=== PATIENT | male | born 1990 | race Caucasian/White ===

== ENCOUNTER 2016-07-23 17:54 | Emergency (ER) | payer MEDICAID ==
[2016-07-23] MEDS ORDERED: ACETAMINOPHEN 325 MG TABLET PO STA (19:17)
[2016-07-23] MEDS ORDERED: DEXAMETHASONE 10 MG/ML VIAL PO STA (19:17)
[2016-07-23] MEDS ORDERED: AMOXICILLIN 250 MG CAPSULE PO STA (19:18)
[2016-07-23] MEDS ORDERED: HYDROcod/ACETAM 5/325 MG TABLET PO STA (19:18)
[2016-07-23] MEDS ORDERED: HYDROcod/ACETAM 5/325 MG TABLET ONE (19:22)
[2016-07-23] MEDS ORDERED: CHERRY SYRUP 10 ML UDC PO ONE (19:22)
[2016-07-23] MEDS ORDERED: DEXAMETHASONE 10 MG/ML VIAL ONE (19:22)
[2016-07-23] MEDS ORDERED: ACETAMINOPHEN 325 MG TABLET PO ONE (19:22)
[2016-07-23] MEDS ORDERED: AMOXICILLIN 250 MG CAPSULE PO ONE (19:22)
== END 2016-07-23 20:12 | disposition home or self-care (01) ==
DX: J01.10 Acute frontal sinusitis, unspecified (principal); F17.200 Nicotine dependence, unspecified, uncomplicated
CPT/HCPCS: 70450; 99283; A9270

== ENCOUNTER 2016-10-13 09:54 | Outpatient (CLI) | payer MEDICAID | END 2016-10-13 09:55 | disposition critical access hospital (66) | LOC: EMS 09:54 | PROVIDERS: ATTEND Surgery | DX: R52 Pain, unspecified (principal) | CPT/HCPCS: A0425; A0429 ==

== ENCOUNTER 2016-10-13 10:14 | Emergency (ER) | payer MEDICAID ==
[2016-10-13] MEDS ORDERED: LIDOCAINE 1%-EPI 1:100000 20 ML MDV SUBQ STA (10:23)
[2016-10-13] MEDS ORDERED: HYDROcod/ACETAM 5/325 MG TABLET PO STA (10:23)
[2016-10-13] MEDS ORDERED: DOCUSATE SODIUM 100 MG CAPSULE PO STA (10:23)
[2016-10-13] MEDS ORDERED: LIDOCAINE 1%-EPI 1:100000 20 ML MDV ONE (10:24)
[2016-10-13] MEDS ORDERED: DOCUSATE SODIUM 100 MG CAPSULE PO ONE (10:26)
[2016-10-13] MEDS ORDERED: HYDROcod/ACETAM 5/325 MG TABLET ONE (10:26)
== END 2016-10-13 11:07 | disposition home or self-care (01) ==
DX: K64.5 Perianal venous thrombosis (principal); Z59.0 Homelessness; Z87.11 Personal history of peptic ulcer disease; F17.200 Nicotine dependence, unspecified, uncomplicated

== ENCOUNTER 2016-10-13 11:48 | Emergency (ER) | payer MEDICAID ==
[2016-10-13] MEDS ORDERED: LIDOCAINE OINTMENT 5% 35.44 GM TUBE TOP STA (12:08)
[2016-10-13] MEDS ORDERED: HYDROcod/ACETAM 5/325 MG TABLET PO STA (12:08)
[2016-10-13] MEDS ORDERED: HYDROcod/ACETAM 5/325 MG TABLET ONE (12:11)
[2016-10-13] MEDS ORDERED: LIDOCAINE JELLY 2% 5 ML TUBE TOP ONE (12:11)
[2016-10-13] MEDS ORDERED: LIDOCAINE OINTMENT 5% 35.44 GM TUBE ONE (12:14)
== END 2016-10-13 12:28 | disposition home or self-care (01) ==
DX: R55 Syncope and collapse (principal); K64.5 Perianal venous thrombosis; Z87.11 Personal history of peptic ulcer disease; J45.909 Unspecified asthma, uncomplicated; F17.200 Nicotine dependence, unspecified, uncomplicated; Z59.0 Homelessness
CPT/HCPCS: 46083; 99283; A9270

== ENCOUNTER 2017-02-04 14:13 | Outpatient (CLI) | payer MEDICAID | END 2017-02-04 14:14 | disposition critical access hospital (66) | LOC: EMS 14:13 | PROVIDERS: ATTEND Surgery | DX: F41.9 Anxiety disorder, unspecified (principal) | CPT/HCPCS: A0425; A0429 ==

== ENCOUNTER 2017-02-04 14:31 | Emergency (ER) | payer MEDICAID ==
[2017-02-04 14:39] VITALS: BP 131/81
== END 2017-02-04 15:38 | disposition home or self-care (01) ==
LOC: EDUNIT# → ED 14:31
DX: I10 Essential (primary) hypertension (principal); R20.0 Anesthesia of skin; Z76.0 Encounter for issue of repeat prescription; Z53.21 Procedure and treatment not carried out due to patient leaving prior to being seen by health care provider

== ENCOUNTER 2017-04-18 09:02 | Emergency (ER) | payer MEDICAID ==
[2017-04-18 09:18] VITALS: BP 117/82
[2017-04-18] MEDS ORDERED: PROPARACAINE 0.5% OPHTH DROPS 15 ML EACHEYE STA (09:18)
[2017-04-18] MEDS ORDERED: PROPARACAINE 0.5% OPHTH DROPS 15 ML ONE (09:23)
--- NOTE | 2017-04-18 09:55 | ED Physician Documentation ---
PD HPI OPHTHO - Stated complaint Stated Complaint: EYE PX - Chief complaint Chief Complaint: Heent - History obtained from History obtained from: Patient - History of Present Illness Timing - onset: How many hours ago (1) Timing - duration: Hours (1) Timing - details: Abrupt onset Pain level max: 5 Pain level now: 4 Location: Right Quality / character: Aching Associated symptoms: FB sensation, Other Contributing factors: Blunt trauma (hit in eye with branch), Irrigated [employer]. No : Wears glasses, Wears contacts, Work related Similar symptoms before: Diagnosis (corneal abrasion) Recently seen: Not recently seen Review of Systems Constitutional: denies: Fever, Chills Eyes: reports: Photophobia, Irritation. denies: Loss of vision, Discharge Ears: denies: Ear pain Nose: reports: Rhinorrhea / runny nose, Congestion Throat: denies: Sore throat PD PAST MEDICAL HISTORY - Past Medical History Past Medical History: Yes Cardiovascular: None Respiratory: Asthma Neuro: Head injury Endocrine/Autoimmune: None GI: Ulcers Psych: Depression, Anxiety, Post traumatic stress disorder - Past Surgical History Past Surgical History: Yes HEENT: Other - Present Medications Home Medications: Ambulatory Orders Medication Instructions Recorded Confirmed Benzonatate [Tessalon Perle] 100 - 200 mg PO TID PRN #30 capsule 04/18/17 Cetirizine HCl/Pseudoephedrine 1 each PO BID PRN #30 tab.er.12h 04/18/17 [Zyrtec-D Tablet] Polymyxin B Sulf/Trimethoprim 1 drop RIGHTEYE Q3H 7 Days drops 04/18/17 [Polytrim Eye Drops] - Allergies Allergies/Adverse Reactions: Allergies Allergy/AdvReac Type Severity Reaction Status Date / Time ketorolac Allergy Intermediate Hives Verified 04/18/17 09:12 tramadol Allergy Intermediate Hives Verified 04/18/17 09:12 NSAIDS (Non-Steroidal AdvReac Intermediate vomits Verified 04/18/17 09:12 Anti-Inflamma blood - Social History Does the pt smoke?: Yes Smoking Status: Current every day smoker Does the pt drink ETOH?: Yes Does the pt have substance abuse?: Yes Substance Use and Type: Marijuana - Immunizations Immunizations are current?: Yes Immunizations: TDAP >10years/unknown - POLST Patient has POLST: No PD ED PE NORMAL - Vitals Vital signs reviewed: Yes - General General: Alert and oriented X 3, No acute distress, Well developed/nourished - HEENT HEENT: PERRL, EOMI, Ears normal, Moist mucous membranes - Neck Neck: Supple, no meningeal sign - Cardiac Cardiac: RRR - Respiratory Respiratory: No respiratory distress, Clear bilaterally - Abdomen Abdomen: Soft, Non tender, Non distended - Derm Derm: Warm and dry - Neuro Neuro: Alert and oriented X 3 - Psych Psych: Normal mood, Normal affect PD ED PE EXPANDED - HEENT HEENT Visual: 1 - abrasion (+fluoroscein uptake, small abrasion.) - Eyes Eyes: Visual acuity - see nn, PERRL, Normal eyelids, No eyelid FB (everted), Corneal abrasion. No: Conj/sclera FB, Corneal FB, Hyphema Results - Vitals Vitals: Vital Signs - 24 hr 04/18/17 04/18/17 09:06 09:12 Temperature 36.2 C L 36.5 C Heart Rate 75 69 Respiratory 96 H 20 Rate Blood Pressure 117/71 117/82 H O2 Saturation 97 Oxygen O2 Source Room air PD MEDICAL DECISION MAKING - ED course Complexity details: considered differential, d/w patient ED course: Patient is a 27-year-old male who presents to the emergency department with a right eye corneal abrasion. [facility]. Also appears to have a viral URI. No evidence of pneumonia, hypoxia, respiratory distress. No fevers. He is well-appearing, nontoxic. He does not wear contacts or glasses. Will follow up with his PCP for further evaluation and care. Patient counseled regarding signs and symptoms for which I believe and urgent re-evaluation would be necessary. Patient with good understanding of and agreement to plan and is comfortable going home at this time This document was made in part using voice recognition software. While efforts are made to proofread this document, sound alike and grammatical errors may occur. Departure - Departure Disposition: 01 Home, Self Care Clinical Impression: Viral URI Corneal abrasion Qualifiers: Encounter type: initial encounter Laterality: right Qualified Code(s): S05.01XA - Injury of conjunctiva and corneal abrasion without foreign body, right eye, initial encounter Condition: Good Instructions: ED Eye Injury Corneal Abrasion, ED URI Viral Follow-Up: your,doctor in 3 days to recheck your eye [Other] Prescriptions: Benzonatate [Tessalon Perle] 100 - 200 mg PO TID PRN #30 capsule PRN Reason: Cough Cetirizine HCl/Pseudoephedrine [Zyrtec-D Tablet] 1 each PO BID PRN #30 tab.er.12h PRN Reason: Nasal Congestion Polymyxin B Sulf/Trimethoprim [Polytrim Eye Drops] 1 drop RIGHTEYE Q3H 7 Days drops Comments: Return if you worsen. This should continue to improve over the next few days, but follow up with your doctor closely to ensure it is healing. The cough will likely last about 2 weeks.
== END 2017-04-18 10:19 | disposition home or self-care (01) ==
LOC: ED 09:02
DX: S05.01XA Injury of conjunctiva and corneal abrasion without foreign body, right eye, initial encounter (principal); W22.8XXA Striking against or struck by other objects, initial encounter; Y93.H2 Activity, gardening and landscaping; F17.200 Nicotine dependence, unspecified, uncomplicated
CPT/HCPCS: 99283; 99284; J3490

== ENCOUNTER 2017-11-03 14:06 | Emergency (ER) | payer MEDICAID ==
[2017-11-03] MEDS ORDERED: CLINDAMYCIN 150 MG CAPSULE PO STA (15:09)
[2017-11-03] MEDS ORDERED: HYDROcod/ACETAM 5/325 MG TABLET PO STA (15:09)
--- NOTE | 2017-11-03 15:10 | ED Physician Documentation ---
PD HPI HEENT - Stated complaint Stated Complaint: TOOTH PX - Chief complaint Chief Complaint: Heent - History obtained from History obtained from: Patient - History of Present Illness Timing - onset: How many days ago (couple) Timing - duration: Days Timing - details: Abrupt onset, Still present (worsening pain with feeling of some drainage.) Location: Tooth (left lower molar) Associated symptoms: No: Fever, Congestion, Swollen nodes, Facial swelling Recently seen: Not recently seen Review of Systems Constitutional: denies: Fever, Chills, Myalgias Throat: reports: Dental pain / toothache. denies: Oral lesions / sores, Sore throat, Swollen tonsils Cardiac: denies: Chest pain / pressure GI: denies: Nausea, Vomiting Skin: denies: Rash PD PAST MEDICAL HISTORY - Past Medical History Past Medical History: Yes Cardiovascular: None Respiratory: Asthma Endocrine/Autoimmune: None GI: Ulcers Psych: Depression, Anxiety, Post traumatic stress disorder - Past Surgical History Past Surgical History: Yes HEENT: Other - Present Medications Home Medications: Ambulatory Orders Medication Instructions Recorded Confirmed Clindamycin [Cleocin] 150 mg PO TID #21 capsule 11/03/17 HYDROcod/ACETAM 5/325 [[place] 5/325] 1 tab PO Q6H PRN #15 tablet 11/03/17 - Allergies Allergies/Adverse Reactions: Allergies Allergy/AdvReac Type Severity Reaction Status Date / Time ketorolac Allergy Intermediate Hives Verified 11/03/17 14:19 tramadol Allergy Intermediate Hives Verified 11/03/17 14:19 NSAIDS (Non-Steroidal AdvReac Intermediate vomits Verified 11/03/17 14:19 Anti-Inflamma blood - Social History Does the pt smoke?: Yes Smoking Status: Current every day smoker Does the pt drink ETOH?: Yes Does the pt have substance abuse?: Yes Substance Use and Type: Marijuana - Immunizations Immunizations are current?: Yes Immunizations: TDAP >10years/unknown - POLST Patient has POLST: No PD ED PE NORMAL - Vitals Vital signs reviewed: Yes - General General: Alert and oriented X 3, No acute distress, Well developed/nourished, Other (generally malodorous, feet, skin, clothing) - HEENT HEENT: Pharynx benign. No: Dentition benign (poor dentition but left lower 2nd molar with portion of tooth missing leaving hollow area amenable to temp filling. Gum with some redness and mild swelling. No focal swelling/fluctuance nor drainage. ) - Neck Neck: Supple, no meningeal sign, No adenopathy - Cardiac Cardiac: RRR, No murmur - Respiratory Respiratory: Clear bilaterally Results - Vitals Vitals: Oxygen O2 Source Room air PD MEDICAL DECISION MAKING - ED course Complexity details: reviewed old records (not as many recent visits), considered differential (hollow area of 2nd molar lower right, with temporary filling placed in it. There is some swelling of the gum but not notable abscess. ), d/w patient Departure - Departure Disposition: Home, Self Care Clinical Impression: Infected dental caries Condition: Stable Record reviewed to determine appropriate education?: Yes Instructions: ED Cavity Dental Follow-Up: [facility] [Provider Group] Saul Shook DDS [Provider Admit Priv/Credential] - Prescriptions: Clindamycin [Cleocin] 150 mg PO TID #21 capsule HYDROcod/ACETAM 5/325 [[place] 5/325] 1 tab PO Q6H PRN #15 tablet PRN Reason: Pain Comments: Try to keep the temporary filling in place as long as it will stay. Call [facility] or Dr. Shook oral surgeon Saturday or Saturday for an appointment to have the tooth examined likely extracted. Use Tylenol or hydrocodone if needed for pains. Clindamycin 3 times a day for the next week for infection. Discharge Date/Time: 11/03/17 15:21
[2017-11-03 15:23] VITALS: BP 108/57
== END 2017-11-03 15:21 | disposition home or self-care (01) ==
LOC: ED 14:06
DX: K04.7 Periapical abscess without sinus (principal); K02.9 Dental caries, unspecified; J45.909 Unspecified asthma, uncomplicated; Z87.11 Personal history of peptic ulcer disease; F17.200 Nicotine dependence, unspecified, uncomplicated
CPT/HCPCS: 99283; A9270

== ENCOUNTER 2017-12-23 10:00 | Emergency (ER) | payer MEDICAID ==
[2017-12-23 10:10] VITALS: BP 111/88
--- NOTE | 2017-12-23 20:38 | ED Physician Documentation ---
History of Present Illness - Stated complaint Stated Complaint: KNEE PX - Chief complaint Chief Complaint: Ext Problem PD PAST MEDICAL HISTORY - Past Medical History Past Medical History: Yes Cardiovascular: None Respiratory: Asthma Endocrine/Autoimmune: None GI: Ulcers Psych: Depression, Anxiety, Post traumatic stress disorder - Past Surgical History Past Surgical History: Yes HEENT: Other - Allergies Allergies/Adverse Reactions: Allergies Allergy/AdvReac Type Severity Reaction Status Date / Time ketorolac Allergy Intermediate Hives Verified 11/03/17 14:19 tramadol Allergy Intermediate Hives Verified 12/23/17 10:10 NSAIDS (Non-Steroidal AdvReac Intermediate vomits Verified 11/03/17 14:19 Anti-Inflamma blood - Social History Does the pt smoke?: Yes Smoking Status: Current every day smoker Does the pt drink ETOH?: Yes Does the pt have substance abuse?: Yes - Immunizations Immunizations are current?: Yes Immunizations: TDAP current <10years - POLST Patient has POLST: No Results - Vitals Vitals: Vital Signs - 24 hr 12/23/17 10:08 Temperature 36.6 C Heart Rate 98 Respiratory 18 Rate Blood Pressure 111/88 H O2 Saturation 97 Oxygen O2 Source Room air PD MEDICAL DECISION MAKING - ED course ED course: pt not in room nurse states he walked out to smoke and did not return - Sepsis Event Vital Signs: Vital Signs - 24 hr 12/23/17 10:08 Temperature 36.6 C Heart Rate 98 Respiratory 18 Rate Blood Pressure 111/88 H O2 Saturation 97 Oxygen O2 Source Room air Departure - Departure Disposition: ED Left Without Being Seen Discharge Date/Time: 12/23/17 11:06
== END 2017-12-23 11:06 | disposition left against medical advice (07) ==
LOC: ED 10:00
DX: Z53.21 Procedure and treatment not carried out due to patient leaving prior to being seen by health care provider (principal)
CPT/HCPCS: 99281

== ENCOUNTER 2017-12-27 05:40 | Outpatient (CLI) | payer MEDICAID | END 2017-12-27 05:41 | disposition critical access hospital (66) | LOC: EMS 05:40 | PROVIDERS: ATTEND Surgery | DX: M25.561 Pain in right knee (principal) | CPT/HCPCS: A0425; A0429; A0999 ==

== ENCOUNTER 2017-12-27 06:01 | Emergency (ER) | payer MEDICAID ==
[2017-12-27] MEDS ORDERED: ACETAMINOPHEN 325 MG TABLET PO STA (06:11)
[2017-12-27 06:12] VITALS: BP 120/80
--- NOTE | 2017-12-27 06:15 | ED Physician Documentation ---
PD HPI LOWER EXT INJURY - Stated complaint Stated Complaint: RIGHT KNEE PAIN X 1 WEEK - Chief complaint Chief Complaint: Ext Problem - History obtained from History obtained from: Patient - History of Present Illness PD HPI LOW EXT INJURY LOCATION: Right, Knee Type of injury: Other (Patient states that he was walking on flat ground and he felt a pop in his knee and had pain. States the pain has been increasing over the past week. Has not taken anything for this. States he was arrested the day after this occurred and has been in care home the last several days. Did not seek any medical attention for this while he was in care home.) Where injury occurred: Street Timing - onset: How many weeks ago (1) Timing - duration: Weeks (1) Timing - details: Gradual onset Pain level max: 7 Pain level now: 7 Improved by: Rest Worsened by: Moving, Palpating Associated symptoms: No: Weakness, Numbness, Tingling, Swelling Contributing factors: No: Anticoagulated, Prosthetic joint Recently seen: Other (checked in a few days ago, but left before being seen for same issue.) Review of Systems Constitutional: denies: Fever, Chills Musculoskeletal: denies: Neck pain, Back pain Neurologic: denies: Focal weakness, Numbness PD PAST MEDICAL HISTORY - Past Medical History Past Medical History: Yes Cardiovascular: None Respiratory: Asthma Endocrine/Autoimmune: None GI: Ulcers Psych: Depression, Anxiety, Post traumatic stress disorder - Past Surgical History Past Surgical History: Yes HEENT: Other - Present Medications Home Medications: Ambulatory Orders Medication Instructions Recorded Confirmed Hydrocodone/Acetaminophen 1 - 2 each PO Q6H PRN #7 tablet 12/27/17 [Hydrocodon-Acetaminophen 5-325] - Allergies Allergies/Adverse Reactions: Allergies Allergy/AdvReac Type Severity Reaction Status Date / Time ketorolac Allergy Intermediate Hives Verified 12/27/17 06:13 tramadol Allergy Intermediate Hives Verified 12/27/17 06:13 NSAIDS (Non-Steroidal AdvReac Intermediate vomits Verified 12/27/17 06:13 Anti-Inflamma blood - Social History Does the pt smoke?: Yes Smoking Status: Current every day smoker Does the pt drink ETOH?: Yes Does the pt have substance abuse?: Yes - Immunizations Immunizations are current?: Yes Immunizations: TDAP current <10years - POLST Patient has POLST: No PD ED PE NORMAL - Vitals Vital signs reviewed: Yes - General General: Alert and oriented X 3, No acute distress - HEENT HEENT: Moist mucous membranes - Neck Neck: Supple, no meningeal sign - Derm Derm: Warm and dry - Extremities Extremities: Other (R knee - mild diffuse TTP. no swelling. no skin changes. ACL , PCL, MCL, LCL intact. ) - Neuro Neuro: Alert and oriented X 3 Results - Vitals Vitals: Vital Signs - 24 hr 12/27/17 06:05 Temperature 36.4 C L Heart Rate 83 Respiratory 15 Rate Blood Pressure 120/80 O2 Saturation 98 Oxygen O2 Source Room air - Rads (name of study) R knee xray Radiology: Prelim report reviewed, EMP read contemporaneously PD MEDICAL DECISION MAKING - ED course Complexity details: reviewed results, re-evaluated patient, considered differential, d/w patient ED course: Patient is a 27-year-old male who presents to the emergency department with right knee pain for the past week. ACL, MCL, LCL, PCL are intact. Unable to fully test his meniscus secondary to pain. No acute findings on x-ray. Will place him in a hinged knee brace, give crutches and have him follow-up with his doctor or orthopedics for repeat evaluation. Patient counseled regarding signs and symptoms for which I believe and urgent re-evaluation would be necessary. Patient with good understanding of and agreement to plan and is comfortable going home at this time This document was made in part using voice recognition software. While efforts are made to proofread this document, sound alike and grammatical errors may occur. - Sepsis Event Vital Signs: Vital Signs - 24 hr 12/27/17 06:05 Temperature 36.4 C L Heart Rate 83 Respiratory 15 Rate Blood Pressure 120/80 O2 Saturation 98 Oxygen O2 Source Room air Departure - Departure Disposition: Home, Self Care Clinical Impression: Right knee sprain Qualifiers: Encounter type: initial encounter Involved ligament of knee: unspecified ligament Qualified Code(s): S83.91XA - Sprain of unspecified site of right knee , initial encounter Condition: Good Instructions: ED Meniscal Injury Knee Poss, ED Sprain Knee Follow-Up: [facility] [Provider Group] [facility] [Provider Group] - Within 1 week Prescriptions: Hydrocodone/Acetaminophen [Hydrocodon-Acetaminophen 5-325] 1 - 2 each PO Q6H PRN #7 tablet PRN Reason: pain Comments: Wear the brace for the next week. Use the crutches to help you walk. This should improve over the next week. Follow up with your doctor or orthopedics for further care. Do not drink alcohol or drive while on narcotic pain medicine. Note that many narcotic pain relievers also contain tylenol/acetaminophen. Please ensure that your total dose of acetaminophen from all sources does not exceed 3 grams (3000mg) per day. You may constipated on this medication, take a stool softener such as "Colace" twice a day while you are on it. Also recommend a zuhe-hxd-mjmemys laxative such as senna or MiraLAX any day that you do not have a bowel movement. If you received narcotic pain medication in the emergency department, do not drive or operate machinery for the next 24 hours.
--- NOTE | 2017-12-27 06:41 | XRAY Report ---
Procedure Date: 12/27/2017 Accession Number: [id number] / [id number] Procedure: XR - Knee 4 View RT CPT Code: FULL RESULT: EXAM: RIGHT KNEE RADIOGRAPHY EXAM DATE: 12/27/2017 06:29 AM. CLINICAL HISTORY: R knee pain, no known injury. COMPARISON: 01/14/2012. TECHNIQUE: 4 views. FINDINGS: Bones: No fracture seen. Joints: No dislocation. Joint spaces appear intact. No joint effusion identified. Soft Tissues: Grossly unremarkable. IMPRESSION: 1. No acute abnormality seen in the knee. RADIA
== END 2017-12-27 06:45 | disposition home or self-care (01) ==
LOC: EDUNIT# → ED 06:01
DX: S83.91XA Sprain of unspecified site of right knee, initial encounter (principal); X50.1XXA Overexertion from prolonged static or awkward postures, initial encounter; Y93.01 Activity, walking, marching and hiking; Y92.413 State road as the place of occurrence of the external cause; J45.909 Unspecified asthma, uncomplicated; F17.200 Nicotine dependence, unspecified, uncomplicated
CPT/HCPCS: 73564; 99283; A9270

== ENCOUNTER 2018-02-18 11:15 | Emergency (ER) | payer MEDICAID ==
[2018-02-18 11:24] VITALS: BP 110/67
--- NOTE | 2018-02-18 12:03 | XRAY Report ---
Reason: injury Procedure Date: 02/18/2018 Accession Number: [id number] / [id number] Procedure: XR - Foot 2 View RT CPT Code: FULL RESULT: EXAM: RIGHT FOOT RADIOGRAPHY EXAM DATE: 02/18/2018 11:44 AM. CLINICAL HISTORY: Injury. COMPARISON: None. TECHNIQUE: 2 views. FINDINGS: Bones: Normal. No fractures or bone lesions. Joints: Normal. No subluxations. Soft Tissues: Normal. No soft tissue swelling. IMPRESSION: No fracture, dislocation or radiopaque foreign body. RADIA
--- NOTE | 2018-02-18 12:03 | XRAY Report ---
Reason: injury Procedure Date: 02/18/2018 Accession Number: [id number] / [id number] Procedure: XR - Knee 2 View RT CPT Code: FULL RESULT: EXAM: RIGHT KNEE RADIOGRAPHY EXAM DATE: 02/18/2018 11:44 AM. CLINICAL HISTORY: Injury. COMPARISON: KNEE 4 VIEW RIGHT 12/27/2017 6:14 AM. TECHNIQUE: 2 views. FINDINGS: Bones: Normal. No fractures or bone lesions. Joints: Normal. No effusion. No subluxations. Soft Tissues: Normal. No soft tissue swelling. IMPRESSION: No fracture or dislocation. RADIA
[2018-02-18] MEDS ORDERED: NAPROXEN 250 MG TABLET PO STA (13:41)
--- NOTE | 2018-02-18 13:44 | ED Physician Documentation ---
PD HPI LOWER EXT INJURY - Stated complaint Stated Complaint: KNEE PX - Chief complaint Chief Complaint: Ext Problem - History obtained from History obtained from: Patient - Additional information Additional information: 27-year-old male presents the emergency department with ongoing knee pain, the patient reports walking everywhere that he needs to go. The patient also reports pain in his foot. The pain is chronic. No new trauma. Symptoms are described as moderate. No relief with [id number] Motrin. Review of Systems Constitutional: denies: Fever, Chills Cardiac: denies: Chest pain / pressure Respiratory: denies: Cough GI: denies: Abdominal Pain Musculoskeletal: reports: Extremity pain, Joint pain. denies: Extremity swelling, Joint swelling Neurologic: denies: Generalized weakness PD PAST MEDICAL HISTORY - Past Medical History Cardiovascular: None Respiratory: Asthma Endocrine/Autoimmune: None GI: Ulcers Psych: Depression, Anxiety, Post traumatic stress disorder - Past Surgical History Past Surgical History: Yes HEENT: Other - Present Medications Home Medications: Ambulatory Orders Medication Instructions Recorded Confirmed Hydrocodone/Acetaminophen 1 - 2 each PO Q6H PRN #7 tablet 12/27/17 [Hydrocodon-Acetaminophen 5-325] - Allergies Allergies/Adverse Reactions: Allergies Allergy/AdvReac Type Severity Reaction Status Date / Time ketorolac Allergy Intermediate Hives Verified 02/18/18 11:24 tramadol Allergy Intermediate Hives Verified 02/18/18 11:24 NSAIDS (Non-Steroidal AdvReac Intermediate vomits Verified 02/18/18 11:24 Anti-Inflamma blood - Social History Does the pt smoke?: Yes Smoking Status: Current every day smoker Does the pt drink ETOH?: Yes Does the pt have substance abuse?: Yes - Immunizations Immunizations are current?: Yes Immunizations: TDAP current <10years - POLST Patient has POLST: No PD ED PE NORMAL - General General: Alert and oriented X 3, No acute distress - HEENT HEENT: Atraumatic, PERRL, EOMI, Ears normal - Derm Derm: Normal color - Extremities Extremities: No deformity, No tenderness to palpate, Normal ROM s pain, No edema , Other (The patient has full active range of motion of bilateral hips, knees ankles and feet. There is no evidence of a joint effusion in any of the lower extremity joints. The patient has normal bilateral dorsalis pedis pulses with normal cap refill bilaterally. There is no evidence of erythematous changes. No crepitus) - Neuro Neuro: Alert and oriented X 3, Normal speech - Psych Psych: Normal affect Results - Vitals Vitals: Vital Signs - 24 hr 02/18/18 11:19 Temperature 36.4 C L Heart Rate 88 Respiratory 16 Rate Blood Pressure 110/67 O2 Saturation 99 Oxygen O2 Source Room air - Rads (name of study) XR Knee/Foot Radiology: Final report received PD MEDICAL DECISION MAKING - ED course ED course: The patient has no evidence of fracture, dislocation, septic arthritis, bette lulitis, abscess or avascular etiology. The patient's pain appears to be secondary to overuse. I recommended follow-up as an outpatient. Discussed warning signs and recommended returning to the emergency department for any worsening or any concerns. - Sepsis Event Vital Signs: Vital Signs - 24 hr 02/18/18 11:19 Temperature 36.4 C L Heart Rate 88 Respiratory 16 Rate Blood Pressure 110/67 O2 Saturation 99 Oxygen O2 Source Room air Departure - Departure Disposition: 01 Home, Self Care Clinical Impression: Knee pain Qualifiers: Chronicity: unspecified Laterality: unspecified laterality Qualified Code(s): M25.569 - Pain in unspecified knee Foot pain Qualifiers: Laterality: unspecified laterality Qualified Code(s): M79.673 - Pain in unspecified foot Condition: Good Instructions: ED Strain Muscle Ext Comments: Please follow-up with primary care in 1-2 weeks. Please return to the emergency department for worsening symptoms or any concerns
== END 2018-02-18 13:53 | disposition home or self-care (01) ==
LOC: ED 11:15
DX: M25.569 Pain in unspecified knee (principal); M79.673 Pain in unspecified foot; F17.200 Nicotine dependence, unspecified, uncomplicated
CPT/HCPCS: 73560; 73620; 99282; 99283; A9270

== ENCOUNTER 2018-09-08 08:48 | Emergency (ER) | payer MEDICAID ==
[2018-09-08] MEDS ORDERED: HYDROmorphone 1 MG/ML CARPUJECT IM STA (12:02)
[2018-09-08] MEDS ORDERED: LORazepam 2 MG/ML VIAL IM STA (12:03)
[2018-09-08] MEDS ORDERED: BUFFERED LIDOCAINE 10 ML SYRINGE SUBQ STA (12:03)
--- NOTE | 2018-09-08 12:06 | ED Physician Documentation ---
PD HPI SKIN - Stated complaint Stated Complaint: SORES ON LEGS - Chief complaint Chief Complaint: Wound - History obtained from History obtained from: Patient - History of Present Illness Timing - onset: Other (He has 2 painful abscesses noted while he was in detention, one on the inferior right buttock and one on the right thigh. The one on the right buttock has been there for about a week, the right thigh for about 2 days. He denies fevers.) Review of Systems Constitutional: denies: Fever, Chills Cardiac: denies: Chest pain / pressure, Palpitations Respiratory: denies: Dyspnea, Cough PD PAST MEDICAL HISTORY - Past Medical History Cardiovascular: None Respiratory: Asthma Endocrine/Autoimmune: None GI: Ulcers Psych: Depression, Anxiety, Post traumatic stress disorder - Past Surgical History Past Surgical History: Yes HEENT: Other - Present Medications Home Medications: Ambulatory Orders Medication Instructions Recorded Confirmed Clindamycin HCl [Clindamycin 300MG 300 mg PO Q6H #28 capsule 09/08/18 CAP] Hydrocodone/Acetaminophen 1 - 2 each PO Q6H PRN #14 tablet 09/08/18 [Hydrocodon-Acetaminophen 5-325] - Allergies Allergies/Adverse Reactions: Allergies Allergy/AdvReac Type Severity Reaction Status Date / Time ketorolac Allergy Intermediate Hives Verified 09/08/18 08:59 tramadol Allergy Intermediate Hives Verified 09/08/18 08:59 NSAIDS (Non-Steroidal AdvReac Intermediate vomits Verified 09/08/18 08:59 Anti-Inflamma blood - Social History Does the pt smoke?: Yes Smoking Status: Current every day smoker Does the pt drink ETOH?: Yes Does the pt have substance abuse?: Yes - Immunizations Immunizations are current?: Yes Immunizations: TDAP current <10years - POLST Patient has POLST: No PD ED PE NORMAL - Vitals Vital signs reviewed: Yes - General General: Alert and oriented X 3, No acute distress - Extremities Extremities: Other (On the right lateral mid thigh there is a cellulitic area with kind of a pustule overlying it. It does not feel to have a whole lot of fluctuance, just induration. There is a larger pointed abscess that is fluctuant on the inferior right buttock.) - Neuro Neuro: Alert and oriented X 3, No motor deficit, Normal speech Results - Vitals Vitals: Vital Signs - 24 hr 09/08/18 09/08/18 08:57 10:51 Temperature 35.8 C L Heart Rate 107 H 96 Respiratory 14 20 Rate Blood Pressure 125/78 126/66 O2 Saturation 99 100 Oxygen O2 Source Room air Procedures - Abscess I&D (location) R buttock and R thigh Preparation: Chlorhexadine Incision: Other (Wound on the right thigh was just needle aspirated, there is not really anything of significance in it. The one on the buttock was incised and deloculated with forceps. It was not big enough to pack. A culture was taken from that one.) Other: Pt tolerated well, Dressing applied, Antibiotic prescribed Departure - Departure Disposition: Home, Self Care Clinical Impression: Abscess Condition: Good Record reviewed to determine appropriate education?: Yes Instructions: ED Abscess IandD Prescriptions: Clindamycin HCl [Clindamycin 300MG CAP] 300 mg PO Q6H #28 capsule Hydrocodone/Acetaminophen [Hydrocodon-Acetaminophen 5-325] 1 - 2 each PO Q6H PRN #14 tablet PRN Reason: pain Comments: We are performing a wound culture, the results should be done in 48-72 hours. If antibiotic change is necessary we will call you. Return if worse in the meantime, especially if you develop increased pain, fevers, cannot keep down the medication. Otherwise follow-up with your physician in approximately 2-3 days.
[2018-09-08 13:13] VITALS: BP 124/75
== END 2018-09-08 13:13 | disposition home or self-care (01) ==
LOC: ED 08:48
DX: L02.415 Cutaneous abscess of right lower limb (principal); L02.31 Cutaneous abscess of buttock; F17.200 Nicotine dependence, unspecified, uncomplicated
CPT/HCPCS: 10060; 10160; 87070; 87077; 87181; 87205; 96372; 99283; J1170; J2060

== ENCOUNTER 2018-09-30 07:58 | Emergency (ER) | payer MEDICAID ==
[2018-09-30] MEDS ORDERED: BUFFERED LIDOCAINE 10 ML SYRINGE SUBQ STA (08:32)
[2018-09-30] MEDS ORDERED: SULFAMETH/TRIMETH DS 800/160 MG TABLET PO STA (08:32)
--- NOTE | 2018-09-30 08:34 | ED Physician Documentation ---
PD HPI SKIN - Stated complaint Stated Complaint: RT FOOT TOE PX - Chief complaint Chief Complaint: Wound - History obtained from History obtained from: Patient - History of Present Illness Timing - onset: Other (28-year-old gentleman presents with a couple of complaints, he has an ingrown right great toenail which is painful for about a week. He was seen here a little under a month ago and had some skin lesions which are not cleared up. He was placed on clindamycin, but only took a couple of days worth because they were stolen. Culture grew MRSA. No fevers.) Review of Systems Constitutional: reports: Reviewed and negative Throat: reports: Reviewed and negative Cardiac: reports: Reviewed and negative Respiratory: reports: Reviewed and negative PD PAST MEDICAL HISTORY - Past Medical History Cardiovascular: None Respiratory: Asthma Endocrine/Autoimmune: None GI: Ulcers Psych: Depression, Anxiety, Post traumatic stress disorder - Past Surgical History Past Surgical History: Yes HEENT: Other - Present Medications Home Medications: Ambulatory Orders Medication Instructions Recorded Confirmed Clindamycin HCl [Clindamycin 300MG 300 mg PO Q6H #28 capsule 09/08/18 CAP] Hydrocodone/Acetaminophen 1 - 2 each PO Q6H PRN #14 tablet 09/08/18 [Hydrocodon-Acetaminophen 5-325] Chlorhexidine Gluconate [Hibiclens] 10 ml TP DAILY #1 bot 09/30/18 Ibuprofen [Motrin] 800 mg PO Q8H PRN #30 tablet 09/30/18 Mupirocin 1 gm CLARISSA TID #2 oin.pf.kimberly 09/30/18 Sulfamethoxazole/Trimethoprim 1 each PO BID #20 tablet 09/30/18 [Sulfamethoxazole-Tmp Ds Tablet] - Allergies Allergies/Adverse Reactions: Allergies Allergy/AdvReac Type Severity Reaction Status Date / Time ketorolac Allergy Intermediate Hives Verified 09/30/18 08:12 tramadol Allergy Intermediate Hives Verified 09/30/18 08:12 NSAIDS (Non-Steroidal AdvReac Intermediate vomits Verified 09/30/18 08:12 Anti-Inflamma blood - Social History Does the pt smoke?: Yes Smoking Status: Current every day smoker Does the pt drink ETOH?: Yes Does the pt have substance abuse?: Yes - Immunizations Immunizations are current?: Yes Immunizations: TDAP current <10years - POLST Patient has POLST: No PD ED PE NORMAL - Vitals Vital signs reviewed: Yes - General General: Alert and oriented X 3, No acute distress - Extremities Extremities: Other (There is a small area of cellulitis without abscess on the right anterolateral thigh. The right medial great toe is ingrown with infection.) - Neuro Neuro: Alert and oriented X 3, Normal speech Results - Vitals Vitals: Vital Signs - 24 hr 09/30/18 08:08 Temperature 36.3 C L Heart Rate 89 Respiratory 18 Rate Blood Pressure 106/73 O2 Saturation 100 Oxygen O2 Source Room air Procedures - General procedure General procedure: After informed consent and discussion of risk benefits and alternatives and verbal consent was obtained the right great toe was anesthetized using a digital block with buffered lidocaine with excellent anesthesia, using electrocautery I scored the lateral fifth of the great toenail and then removed it using blunt dissection with good initial outcome. Departure - Departure Disposition: 01 Home, Self Care Clinical Impression: Abscess, Ingrown toenail of right foot Condition: Good Record reviewed to determine appropriate education?: Yes Instructions: ED Staph Infec Abx Tx Only, ED Ingrown Toenail Excised Prescriptions: Chlorhexidine Gluconate [Hibiclens] 10 ml TP DAILY #1 bot Ibuprofen [Motrin] 800 mg PO Q8H PRN #30 tablet PRN Reason: PAIN &/OR FEVER Mupirocin 1 gm CLARISSA TID #2 oin.pf.kimberly Sulfamethoxazole/Trimethoprim [Sulfamethoxazole-Tmp Ds Tablet] 1 each PO BID #20 tablet Comments: Call your doctor to arrange a follow-up appointment, make the next available appointment. In the interim, return anytime if worse or if new symptoms develop.
[2018-09-30] MEDS ORDERED: IBUPROFEN 800 MG TABLET PO STA (09:25)
[2018-09-30 09:33] VITALS: BP 108/72
== END 2018-09-30 09:31 | disposition home or self-care (01) ==
LOC: ED 07:58
DX: L60.0 Ingrowing nail (principal); L02.415 Cutaneous abscess of right lower limb; L03.115 Cellulitis of right lower limb; F17.200 Nicotine dependence, unspecified, uncomplicated
CPT/HCPCS: 11730; 99283; A9270

== ENCOUNTER 2020-03-02 15:47 | Emergency (ER) | payer OTHER, MEDICAID ==
[2020-03-02 15:55] VITALS: BP 127/75
--- NOTE | 2020-03-02 16:14 | ED Physician Documentation ---
History of Present Illness - Stated complaint Stated Complaint: LFT ELBOW INJ - Chief complaint Chief Complaint: Trauma Ext - History obtained from History obtained from: Patient - History of Present Illness Timing: Prior to arrival, How many days ago (1) - Additonal information Additional information: 29year-old male presents to the emergency department for evaluation of acute lateral left elbow pain. He reports that he Helping removal roof yesterday when he began to have acute pain. He denies any falls or trauma. Patient states that he took some ibuprofen and felt better. This morning he Initially felt like the elbow was better but is he began to use it more it began to hurt more therefore he seeks treatment today. He is requesting of prescription strength ibuprofen. pt is right handed Review of Systems Constitutional: reports: Reviewed and negative Ears: reports: Reviewed and negative Throat: reports: Reviewed and negative Cardiac: reports: Reviewed and negative Respiratory: reports: Reviewed and negative GI: reports: Reviewed and negative : reports: Reviewed and negative Skin: reports: Reviewed and negative Musculoskeletal: reports: Joint pain (left elbow) Neurologic: reports: Reviewed and negative Psychiatric: reports: Reviewed and negative PD PAST MEDICAL HISTORY - Past Medical History Cardiovascular: None Respiratory: Asthma Endocrine/Autoimmune: None GI: Ulcers Psych: Depression, Anxiety, Post traumatic stress disorder - Past Surgical History Past Surgical History: Yes HEENT: Other - Present Medications Home Medications: Ambulatory Orders Medication Instructions Recorded Confirmed Clindamycin HCl [Clindamycin 300MG 300 mg PO Q6H #28 capsule 09/08/18 CAP] Hydrocodone/Acetaminophen 1 - 2 each PO Q6H PRN #14 tablet 09/08/18 [Hydrocodon-Acetaminophen 5-325] Chlorhexidine Gluconate [Hibiclens] 10 ml TP DAILY #1 bot 09/30/18 Ibuprofen [Motrin] 800 mg PO Q8H PRN #30 tablet 09/30/18 Mupirocin 1 gm CLARISSA TID #2 oin.pf.kimberly 09/30/18 Sulfamethoxazole/Trimethoprim 1 each PO BID #20 tablet 09/30/18 [Sulfamethoxazole-Tmp Ds Tablet] Ibuprofen [Motrin] 600 mg PO Q6H PRN #30 tab 03/02/20 - Allergies Allergies/Adverse Reactions: Allergies Allergy/AdvReac Type Severity Reaction Status Date / Time ketorolac Allergy Intermediate Hives Verified 03/02/20 15:52 tramadol Allergy Intermediate Hives Verified 03/02/20 15:52 NSAIDS (Non-Steroidal AdvReac Intermediate vomits Verified 03/02/20 15:52 Anti-Inflamma blood - Social History Does the pt smoke?: Yes Smoking Status: Current every day smoker Does the pt drink ETOH?: Yes Does the pt have substance abuse?: Yes - Immunizations Immunizations are current?: Yes Immunizations: TDAP current <10years - POLST Patient has POLST: No PD ED PE NORMAL - General General: Alert and oriented X 3, No acute distress - HEENT HEENT: PERRL - Cardiac Cardiac: RRR, No murmur - Respiratory Respiratory: Clear bilaterally - Extremities Extremities: No deformity. No: No tenderness to palpate (Mild tenderness to palpation left lateral olecranon. The pain radiates down the forearm with flexion of the elbow. No swelling or erythema no skin lesions.) - Neuro Neuro: Alert and oriented X 3 Results - Vitals Vitals: Vital Signs - 24 hr 03/02/20 03/02/20 15:52 16:19 Temperature 37.1 C 37.1 C Heart Rate 90 90 Respiratory 16 16 Rate Blood Pressure 127/75 127/75 O2 Saturation 97 97 Oxygen O2 Source Room air - Rads (name of study) left elbow Radiology: Final report received (No osseous lesion) PD MEDICAL DECISION MAKING - ED course Complexity details: reviewed results, re-evaluated patient, considered differential, d/w patient ED course: 29-year-old male presents to the emergency department with acute left lateral el bow pain that radiates down the forearm especially with flexion of the elbow. There are no falls or trauma. No swelling or effusion palpated. no suspicion for cewllulitis, infected bursitis or infected joint. X-ray does not show acute fracture. History and exam is most consistent with a tennis elbow. I will recommend that this gentleman take NSAID medication such as ibuprofen and use an Mark wrap on the arm over the next few days. If pain is worsening or not improved over the then he is advised to follow-up with his primary care provider Departure - Departure Disposition: Home, Self Care Clinical Impression: Left tennis elbow Condition: Stable Instructions: Elbow Tennis Tx Prescriptions: Ibuprofen [Motrin] 600 mg PO Q6H PRN #30 tab PRN Reason: Pain Comments: The x-ray of your elbow looks fairly normal. I suspect that your pain is from a sprain of the tendon on the outside of your elbow. Please wear the Mark wrap to help support the arm over the next few days especially when active. I have prescribed some ibuprofen for pain. If you find that your symptoms are worsening you have elbow redness swelling fevers or red streaking return to the ER for a second look
--- NOTE | 2020-03-02 16:37 | XRAY Report ---
PROCEDURE: Elbow 3 View LT INDICATIONS: acute lateral elbow pain TECHNIQUE: 3 views of the elbow were acquired. COMPARISON: None FINDINGS: Bones: No fractures or dislocations. No suspicious bony lesions. Soft tissues: No elbow joint effusion. No suspicious soft tissue calcifications. IMPRESSION: No osseous lesion. If there is continued clinical concern for pathology, then repeat plain film radio graphs (7-10 days) or advanced imaging (CT, MR, bone scan) should be considered for further evaluatio n. Reviewed by: Grace Leslie MD, PhD on 03/02/2020 4:36 PM PDT Approved by: Grace Leslie MD, PhD on 03/02/2020 4:36 PM PDT Station ID: [id number]
== END 2020-03-02 17:06 | disposition home or self-care (01) ==
LOC: ED 15:47
DX: M77.12 Lateral epicondylitis, left elbow (principal); F17.200 Nicotine dependence, unspecified, uncomplicated
CPT/HCPCS: 99282; 99283

== ENCOUNTER 2020-06-02 | Emergency (ER) | payer MEDICAID ==
--- NOTE | 2020-06-02 19:51 | ED Physician Documentation ---
PD HPI UPPER EXT INJURY - Stated complaint Stated Complaint: FINGER LAC - Chief complaint Chief Complaint: Laceration - History obtained from History obtained from: Patient - History of Present Illness Location: Left, Finger (index) Type of injury: Laceration Where injury occurred: Home Pain level max: 3 Pain level now: 1 Improved by: Rest Worsened by: Moving, Palpating Associated symptoms: No: Weakness, Numbness Recently seen: Not recently seen - Additonal information Additional information: Left index finger laceration while filling the fish today. Worse with movement, better with rest. No weakness or numbness. Tetanus up-to-date. Patient is right-handed Review of Systems Neurologic: denies: Focal weakness, Numbness PD PAST MEDICAL HISTORY - Past Medical History Cardiovascular: None Respiratory: Asthma Neuro: None Endocrine/Autoimmune: None GI: Ulcers : None HEENT: None Psych: Depression, Anxiety, Post traumatic stress disorder Musculoskeletal: None Derm: None - Past Surgical History Past Surgical History: Yes HEENT: Other - Allergies Allergies/Adverse Reactions: Allergies Allergy/AdvReac Type Severity Reaction Status Date / Time ketorolac Allergy Intermediate Hives Verified 03/02/20 15:52 tramadol Allergy Intermediate Hives Verified 03/02/20 15:52 NSAIDS (Non-Steroidal AdvReac Intermediate vomits Verified 03/02/20 15:52 Anti-Inflamma blood - Social History Does the pt smoke?: Yes Smoking Status: Current every day smoker Does the pt drink ETOH?: Yes Does the pt have substance abuse?: Yes - Immunizations Immunizations are current?: Yes Immunizations: TDAP current <10years - POLST Patient has POLST: No PD ED PE NORMAL - Vitals Vital signs reviewed: Yes - General General: Alert and oriented X 3, No acute distress - HEENT HEENT: Moist mucous membranes - Derm Derm: Warm and dry - Extremities Extremities: Other (1 cm laceration to the left index finger. Mid phalanx, lateral aspect. NVI) - Neuro Neuro: Alert and oriented X 3 Results - Vitals Vitals: Vital Signs - 24 hr 06/02/20 06/02/20 19:06 19:58 Temperature 36.8 C 37.0 C Heart Rate 91 67 Respiratory 14 16 Rate Blood Pressure 138/85 H 117/73 O2 Saturation 98 100 Oxygen O2 Source Room air Procedures - Laceration (location) L index finger Length in cm: 1 Wound type: Linear, Superficial, Clean Neurovascular status: Sensory intact, Motor intact, Vascular intact Tendon involvement: Tendon intact Wound Preparation: Irrigated copiously NS Skin layer closure: Dermabond (T ring closure) Other: Patient tolerated well, No complications, Neurovascular intact Complexity: Simple PD MEDICAL DECISION MAKING - ED course Complexity details: considered differential, d/w patient ED course: Laceration repaired. Tolerated well. Tetanus up-to-date. Warnings of infection and instructions on wound care given at bedside. Also counseled on how to minimize scarring. Patient counseled regarding signs and symptoms for which I believe and urgent re-evaluation would be necessary. Patient with good understanding of and agreement to plan and is comfortable going home at this time This document was made in part using voice recognition software. While efforts are made to proofread this document, sound alike and grammatical errors may occur. Departure - Departure Disposition: 01 Home, Self Care Clinical Impression: Finger laceration Qualifiers: Encounter type: initial encounter Finger: index finger Damage to nail status: without damage Foreign body presence: without foreign body Laterality: left Qualified Code(s): S61.211A - Laceration without foreign body of left index finger without damage to nail, initial encounter Condition: Good Instructions: ED Laceration Ext Skin Glue Follow-Up: JANET BYRNE, MSN, [employer] [Primary Care Provider] - As Needed Comments: Keep the wound clean. Return if you worsen. Follow-up with your doctor as needed for further care. Return if you notice redness, swelling or drainage from the wound. Discharge Date/Time: 06/02/20 19:59
== END 2020-06-02 19:59 | disposition home or self-care (01) ==
CPT/HCPCS: 12001; 99282